=== PATIENT | female | born 1945 | race Two or more races ===

== ENCOUNTER 2023-11-29 14:17 | Emergency (ER) | payer OTHER ==
[~2023-11-29] VITALS: Ht 165.1 cm; Wt 59.0 kg
[2023-11-29 14:20] VITALS: BP 119/67; PULSE 80; RESP 14; O2SAT 96
[2023-11-29] MEDS ORDERED: SODIUM CHLORIDE 0.9% 1,000 ML IV ONE (14:30)
[2023-11-29 16:21] LABS: Urine Bacteria MANY /hpf (None Seen); Urine Blood Negative /uL (Negative); Urine Clarity Ex.Turbid (Clear); Urine Color Light-Orange (Yellow); Urine Mucus FEW (None Seen); Urine Protein, UAD 1+ (Negative); Urine Specific Gravity 1.014 (1.001-1.035); Urine Urobilinogen 2 mg/dL (Negative); Urine WBC 29 /hpf (0 - 5); Urine WBC Clumps PRESENT /hpf (None Seen); Urine pH 7.5 (5.0-9.0)
== END 2023-11-29 15:11 | disposition left against medical advice (07) ==
LOC: EDBD 14:17 → ER 14:17
DX: G93.41 Metabolic encephalopathy (principal); I10 Essential (primary) hypertension
CPT/HCPCS: 81001